=== PATIENT | female | born 1960 | race Two or more races ===

== ENCOUNTER 2016-09-30 06:37 | Day surgery (SDC) | payer OTHER ==
[~2016-09-30] VITALS: Ht 152.4 cm; Wt 74.8 kg
[~2016-09-30 06:37] MED LIST: COLACE100 MG PO; FLA500 PO; HYDROCHLOROTH12.5 M2 PO; LAC PO; LEVAQUIN750 MG PO; LISINOPRIL40 MG PO; METFORMIN ER500 M1 PO; MOTRIN800 MG PO; NOR5 PO; NORCO1 TA1 PO; SIMVASTATIN40 M1 PO
[2016-09-30 06:51] VITALS: BP 165/95
[2016-09-30 12:05] VITALS: BP 151/96
== END 2016-09-30 11:30 | disposition home or self-care (01) ==
LOC: DS 06:37 → OR 07:30 → DS 11:30
PROVIDERS: Internal Medicine Gastroenterology
PROC: 0FPB8DZ Removal of Intraluminal Device from Hepatobiliary Duct, Via Natural or Artificial Opening Endoscopic (ICD-10-PCS; principal; 2016-09-30 07:30)
PROC: 0FC98ZZ Extirpation of Matter from Common Bile Duct, Via Natural or Artificial Opening Endoscopic (ICD-10-PCS; 2016-09-30 07:30)
PROC: 0DB68ZX Excision of Stomach, Via Natural or Artificial Opening Endoscopic, Diagnostic (ICD-10-PCS; 2016-09-30 07:30)
DX: Z45.89 Encounter for adjustment and management of other implanted devices (principal); K80.20 Calculus of gallbladder without cholecystitis without obstruction; K25.9 Gastric ulcer, unspecified as acute or chronic, without hemorrhage or perforation; B96.81 Helicobacter pylori [H. pylori] as the cause of diseases classified elsewhere; I10 Essential (primary) hypertension; E11.9 Type 2 diabetes mellitus without complications
CPT/HCPCS: 43260; 82962; C1769; J2704; Q0092; Q9967

== ENCOUNTER 2019-04-04 13:56 | Inpatient (IN) | payer OTHER ==
[~2019-04-04] VITALS: Ht 152.4 cm; Wt 78.5 kg
[2019-04-04 14:05] VITALS: Ht 152.4 cm; Wt 78.5 kg
--- NOTE | 2019-04-04 15:12 | NUR ---
PT PRESENTS TO THE ED TODAY WITH C/C OF LEFT FOOT DISCOMFORT. PT HAD A L KNEE REPLACEMENT BACK IN AUGUST AND THE SURGEON "MESSED UP" AND "CUT" AN ARTERY AND A NERVE. PT PRESENTS TODAY WITH 1ST-4TH TOES WITH BLACK DISCOLORATION. HALF OF THE 1ST TOE APPEARS BLACK. 5TH TOE DOES NOT SEEM TO BE DISCOLORED, FLOAT OPERATOR IMMEDIATE TO THE 5TH TOE. PT REPORTS THAT SHE NO LONGER HAS FEELING TO THE AREAS OF BLACK DISCOLORATION. PT ALSO HAS EDEMA TO LEFT LOWER EXTREMITY FROM HER LEFT KNEE AND DOWN. PT REPORTS THAT SHE HAS TRIED FOLLOWING UP WITH A VASCULAR SPECIALIST AND WAS TOLD TO COME TO THE ED. +MALODOROUS YELLOW/BROWN DRAINAGE BETWEEN 4TH AND 5TH TOE. PT IS AWAKE AND ALERT, RESP E/U, NAD NOTED. AWAITING MSE.
[2019-04-04 16:51] LABS: BASOPHIL % 0.8 % (0-2); PLATELET COUNT 285 x10^3mcL (130-400)
[2019-04-04 16:54] LABS: RED CELL DISTRIBUTION WIDTH 15.2 % (11.5-14.5)
[2019-04-04 17:00] LABS: CALCIUM 9.3 mg/dL (8.5-10.1); CARBON DIOXIDE 30.7 mmol/L (21-32); CHLORIDE SERUM 101 mmol/L (98-107); CREATININE SERUM 0.7 mg/dL (0.6-1.0); GFR1 > 60 mL/min; GLUCOSE SERUM 94 mg/dL (74-106); POTASSIUM SERUM 3.1 mmol/L (3.5-5.1); SODIUM SERUM 141 mmol/L (136-145)
[2019-04-04 17:04] LABS: ALBUMIN 4.3 g/dL (3.4-5.0); ALKALINE PHOSPHATASE 110 U/L (46-116); ALT/SGPT 29 U/L (14-59); AST/SGOT 20 U/L (15-37); BILIRUBIN TOTAL 0.8 mg/dL (0.20-1.00); C REACTIVE PROTEIN 0.4 mg/dL (<=0.9)
[2019-04-04 18:02] LABS: ERYTHROCYTE SED RATE 37 mm/hr (0-30)
--- NOTE | 2019-04-04 18:31 | NUR ---
ATTEMPTING TO START IV, FOOT DOCTOR AT BEDSIDE AT THIS TIME.
--- NOTE | 2019-04-04 18:42 | NUR ---
AATTEMPTING TO DO IV AT THIS TIME, RADIOLOGY AT BEDSIDE.
[2019-04-04 18:54] LABS: MAGNESIUM 2.1 mg/dL (1.8-2.4)
[2019-04-04 18:56] LABS: CHOLESTEROL/HDL RATIO 3.6
[2019-04-04 18:57] LABS: T4(THYROXINE) 9.5 ug/dL (4.7-13.3)
--- NOTE | 2019-04-04 19:22 | NUR ---
PT MEDICATED PER ORDER, PT VERBALIZED UNDERSTANDING OF MEDICATION PRIOR TO ADMINISTRATION. PT IS AWAKE AND ALERT, RESP E/U, NAD NOTED. SPOUSE AT BEDSIDE.
[2019-04-04] MEDS ORDERED: LASIX20 MG PO (19:25)
[2019-04-04 19:47] LABS: T3 TOTAL 1.02 ng/mL
--- NOTE | 2019-04-04 19:58 | NUR ---
REPORT CALLED TO LYUDMILA SOARES ON MED SURG TO ASSUME CARE FOR PT.
--- NOTE | 2019-04-04 20:04 | NUR ---
IV VANCO INITIATED PER ORDER, PT VERBALIZED UNDERSTANDING OF MEDICATION PRIOR TO ADMINISTRATION.
--- NOTE | 2019-04-04 20:13 | NUR ---
PT TRANSPORTED TO TELE AT THIS TIME. PT IS AWAKE AND ALERT, RESP E/U, VERBALIZED UNDERSTANDING OF PLAN OF CARE PRIOR TO TRANSPORT. PT SENT WITH LYUDMILA MONTALVO AWARE OF NEED TO CONTINUE INFUSION. TRANSPORTED BY EMT VANI VIA [facility] MALONEY NOTED.
[2019-04-04 20:44] VITALS: BP 114/67
--- NOTE | 2019-04-04 20:55 | NUR ---
RECEIVED PT FROM LYUDMILA MOORE. PT A/OX4. DENIES SOB ON RA. IV PATENT AND INFUSING WELL WITH NO S/S OF INFILTRATION. AT BEDSIDE. PT ORIENTED TO ROOM AND SURROUNDINGS. CALL LIGHT WITHIN REACH, BED IN LOW POSITION. WILL CONTINUE TO MONITOR.
--- NOTE | 2019-04-04 20:55 | NUR ---
RECEIVED FROM ER, TRANSPORTED VIA [facility]. AWAKE AND ALERT, ORIENTED TO NAME, PLACE, TIME AND SITUATION. SPEECH CLEAR AND APPROPRIATE. BREATHING EVEN AND UNLABORED ON ROOM AIR. SALINE LOCK TO LEFT AC, INTACT. STATED SOUGHT ADMISSION DUE TO INCREASING PAIN AND DRAINAGE TO LEFT FOOT/TOES. NOTED 1ST TO 4TH TOES OF LEFT FOOT ARE BLACK IN COLOR. SCANT DRAINAGE NOTED IN BETWEEN 4TH AND 5TH TOES. NOTED CRUSTED AREA IN PLANTAR SIDE OF LEFT FOOT. SEE PHOTODOCUMENTATIONS. INSTRUCTED ON USE OF CALL LIGHT TO CALL FOR ASSISTANCE. PLACED WITHIN EASY REACH. ENDORSED TO NURSE SORAES
--- NOTE | 2019-04-05 01:31 | NUR ---
PT RESTING IN NO ACUTE DISTRESS. RR EVEN AND UNLABORED. CALL LIGHT WITHIN REACH, BED IN LOW POSITION. WILL CONTINUE TO MONITOR.
[2019-04-05 06:25] LABS: BASOPHIL % 1.1 % (0-2); PLATELET COUNT 263 x10^3mcL (130-400)
[2019-04-05 06:29] LABS: RED CELL DISTRIBUTION WIDTH 14.8 % (11.5-14.5)
[2019-04-05 06:39] LABS: CALCIUM 9.2 mg/dL (8.5-10.1); CARBON DIOXIDE 30.4 mmol/L (21-32); CHLORIDE SERUM 106 mmol/L (98-107); CREATININE SERUM 0.7 mg/dL (0.6-1.0); GFR1 > 60 mL/min; GLUCOSE SERUM 101 mg/dL (74-106); SODIUM SERUM 144 mmol/L (136-145)
--- NOTE | 2019-04-05 07:05 | NUR ---
RECEIVED BESIDE REPORT FROM JAVA USER INTERFACE DEVELOPER NURSE AT THIS TIME. PATIENT RESTING COMFORTABLY IN BED. NO APPARENT DISTRESS OR DISCOMFORT NOTED. BREATHING EVEN AND UNLABORED. NO RESPIRATORY DSITRESS NOTED. PATIENT DENIES SHORTNESS OF BREATH. PATIENT DENIES CHEST PAIN AT THIS TIME. 1ST-4TH TOE ON LEFT FOOT BLACK IN COLOR AND SCANT DRAINAGE NOTED BETWEEN 4TH-5TH TOE ON LEFT FOOT. IV PATENT AND INTACT. ALL QUESTIONS AND CONCERNS ADDRESSED. ALL NEEDS ATTENDED TO. WILL CONTINUE TO MONITOR
[2019-04-05 08:21] VITALS: BP 120/76
--- NOTE | 2019-04-05 10:19 | NUR ---
ALL MORNING MEDICATIONS ADMINISTERED. PATIENT TOLERATED MEDICATION WELL. NO APPARENT ADVERSE EFFECTS NOTED. ALL NEEDS ATTENDED TO. WILL CONTINUE TO MONITOR
--- NOTE | 2019-04-05 12:00 | NUR ---
PATIENT BLOOD SUGAR AT THIS TIME IS 94. NO INSULIN COVERAGE REQUIRED. ALL NEEDS ATTENDED TO. WILL CONTINUE TO MONITOR
[2019-04-05 15:51] LABS: microscopic required? NO
[2019-04-05 15:58] LABS: urine erythrocyte NEGATIVE (NEGATIVE)
[2019-04-05 16:07] LABS: AMPHETAMINE QUAL UR NONE DETECTED (See below)
[2019-04-05 16:55] VITALS: BP 108/65
--- NOTE | 2019-04-05 17:09 | NUR ---
BLOOD SUGAR 123 AT THIS TIME. NO INSULIN COVERAGE REQUIRED. ALL NEEDS ATTENDED TO. WILL CONTINUE TO MONITOR
--- NOTE | 2019-04-05 18:45 | NUR ---
PATIENT RESTING COMFORTABLY IN BED AT THIS TIME. FAMILY MEMBERS AT BEDSIDE. NO APPARENT DISTRESS OR DISCOMFORT NOTED. IV PATENT AND INTACT TO LAC. ALL QUESTIONS AND CONCERNS ADDRESSED. ALL NEEDS ATTENDED TO. SAFETY PRECAUTIONS MAINTAINED. WILL ENDORSE ALL CARE TO CRANE RIGGER NURSE
--- NOTE | 2019-04-05 19:44 | NUR ---
SEATED UP IN BED TALKING TO FAMILY MEMBER, NO DISTRESS AUDIBLE INSPIRATORY WHEEZES NOTED, SOB ON EXERTION ON CONTINUOUS 02 @ 2L/MIN NC, ENCOURAGED TO USE INCENTIVE SPIROMETER, SATURATING 93% IV ACCESS @ LT HAND PATENT NON INFIL, SCD'S FOR DVT PROPHYLAXIS, TELE #[address] IN THE MONITOR NO CP OR PRESSURE, SHIFT ASSESSMENT DONE, CONT TO MONITOR.
--- NOTE | 2019-04-05 19:55 | NUR ---
SHIFT ASSESSMENT DONE, PT IN BED AAO X4 VERBAL LUXEMBOURGER SPEAKING DENIES PAIN LT FOOT ELEVATED WITH PILLOW, LT FOOT 1ST TO 4TH TOE BLACK IN COLOR WITH MINIMAL DRAINAGE BUFFING LINE SET UP WORKER, +2 EDEMA LLE, ABLE TO AMBULATE USING FWW, IVF NS INFUSING @ 100CC/HR IV ACCESS LAC PATENT NON INFIL, AFEBRILE, NO DISTRESS LUNGS CTA, FAMILY MEMBER AT BEDSIDE FOR VISIT, CONT TO MONITOR AND PROCEED TO CURRENT PLAN OF CARE.
--- NOTE | 2019-04-05 20:00 | NUR ---
RECEIVED PT IN BED AAO X4 VERBAL PERSIAN SPEAKING, DENIES PAIN NO DISTRESS LUNGS CTA, INTACT DRESSING TO LEFT FOOT, CLEAN AND DRY, DRESSING CHANGED BY IT BUSINESS ANALYST THIS AFTERNOON, KEEP LEFT LEG ELEVATED WITH PILLOW, IVF ON TKO, CONT ON IV ANTIBIOTIC ORDERED, NO ADV REACTION, V/S STABLE, SHIFT ASSESSMENT DONE, CALL LIGHT AT REACH.
[2019-04-05 20:19] VITALS: BP 102/62
--- NOTE | 2019-04-05 21:35 | NUR ---
RECEIVED VANCO TROUGH RESULT 13.5, PHARMACIST AWARE FOR VANCO DOSING, CONTINUE SAME DOSE PER PHARMACIST ON ACCEPTABLE RANGE.
--- NOTE | 2019-04-05 21:38 | NUR ---
PT C/O LT FOOT PAIN 02/16 PER ASSESSMENT NORCO PO GIVEN PER PRN ORDER, REPOSITIONED SELF TO COMFORT, CONT TO MONITOR.
--- NOTE | 2019-04-06 02:00 | NUR ---
ASSISTED TO THE BATHROOM AMBULATES WITH FWW SLOW WT BEARING TO THE HEEL AREA SLOW STEADY BALANCE, DENIES PAIN, CONT TO MONITOR.
[2019-04-06 05:33] VITALS: BP 116/76
[2019-04-06 06:06] LABS: BASOPHIL % 0.4 % (0-2); PLATELET COUNT 256 x10^3mcL (130-400)
--- NOTE | 2019-04-06 06:24 | NUR ---
IV ATB ZOSYN HANGED INDICATED, NO ADV REACTION, PT'S BLD SUGAR IN RANGE, LT FOOT KEPT ELEVATED WITH PILLOW DRY AND INTACT DRESSING, WILL ENDORSE TO INCOMING SHIFT FOR F/U CARE.
--- NOTE | 2019-04-06 07:10 | NUR ---
RECEIVED REPORT FROM BLAKE COREAS, PT IN BED IN NO ACUTE DISTRESS
--- NOTE | 2019-04-06 07:36 | NUR ---
PT IN BED, IN NO APPARENT PAIN/DISTRESS, VERBAL, ABLE TO MAKE NEEDS KNOWN, PERRLA, NO FACIAL DROOP/SLUURED SPEECH, DENIED PAIN/ALEXANDER/CP/PALPITATION, DENIED N/V/D, RESP EVEN, NO SOB/COUGH, MEDSURG, CHEST RISE SYMMETRICALLY, ABD ROUNDED AND NON-TENDER TO TOUCH, BS ACTIVE X 4, PALP PUSLES, WEAK PULSES TO (L) LOWER EXTREMITITES, SKIN D/W/C, SEE SKIN ASSESSMENT, WOUND DRESSING CDI, IV PATENT AND FLUSHING WELL, DRESSING CDI, AMBULATORY W/ ASSIST, CONTINENT, CCHO DIET, ALL NEEDS ADDRESSED AT THIS TIME, SAFETY PROTOCOL FOLLOWED, CONTINUE TO MONITOR
[2019-04-06 08:16] LABS: POTASSIUM SERUM 3.4 mmol/L (3.5-5.1); SODIUM SERUM 141 mmol/L (136-145)
[2019-04-06 08:17] LABS: CHLORIDE SERUM 102 mmol/L (98-107)
[2019-04-06 08:18] LABS: CARBON DIOXIDE 30.5 mmol/L (21-32); CREATININE SERUM 0.8 mg/dL (0.6-1.0); GFR1 > 60 mL/min; GLUCOSE SERUM 100 mg/dL (74-106); MAGNESIUM 2.2 mg/dL (1.8-2.4)
[2019-04-06 08:23] VITALS: BP 103/61
--- NOTE | 2019-04-06 08:27 | NUR ---
SEEN BY COMMODITIES TRADER, DRESSING CHANGED BY COMMODITIES TRADER, REPORTED PAIN 01/16, [place], (L) TOES WOUND, MEDICATED PER EMAR PRN ORDER, TAKEN WELL, EDUCATION R/T MEDICATION, ASE GIVEN TO PT, VERBALLY UNDERSTANDING, CONTINUE TO MONITOR
[2019-04-06 08:30] VITALS: BP 103/61
--- NOTE | 2019-04-06 09:36 | NUR ---
AM MED GIVEN PER EMAR PER MD ORDER, TAKEN WELL, NO ASE NOTED AT THIS TIME, EDUCATED PT R/T MED AND S/E, VERBALLY UNDERSTANDING, CONTINUE TO MONITOR
[2019-04-06] MEDS ORDERED: COUMADIN3 MG PO (10:40)
--- NOTE | 2019-04-06 11:49 | NUR ---
PT SITTING IN BED, IN NO ACUTE DISTRESS, DENIED PAIN/DISCOMFORT AT THIS TIME, FAMILY AT BEDSIDE, CONTINUE TO MONITOR
--- NOTE | 2019-04-06 13:52 | NUR ---
DC PAPER SIGNED AND KEPT IN CHART, EDUCATION R/T MED, CONDITION AND WOUND CARE GIVEN TO PT AND AT BEDSIDE, VERBALLY UNDERSTANDING, WOUND SUPPLY GIVEN TO PT APPROXIMATELY 7 DAYS, NEW PRESCRIPTION GIVEN TO PT PER MD ORDER, WOUND DRESSING PIC TAKEN AND KEPT IN CHART, DRESSING CDI, IV REMOVED, IV CATH TIP INTACT, NO ACTIVE BLEEDING NOTED AT THIS TIME, EDUCATION R/T WOUND INFECTION RECOGNITION GIVEN TO PT AND , MICHAEL UNDERSTANDING, PT MADE AWARE OF ARRANGED APOPINTMENT W/ PCP AND CATALOG LIBRARIAN ADRIEN, PT AWARE THAT SHE NEED TO CALLED FOR TIME CONFIRMATION W/ DR JURADO OFFICE ON 04/12/19, PHONE NUMBER GIVEN TO , PT SAID IT'S HER RESPONSIBITY TO F/U W/ APPOINTMENT, PAIN MEDICATED PRIOR DC PER PT REQUESTED, TOLERATED WELL, NO ASE NOTED AT THIS TIME, PT ASSISTED TO LOBBY BY NURSING STAFFS USING CLARIB[address] DOMINGUEZ DRIVE PT HOME. PT LEAVE IN NO ACUTE DISTRESS
--- NOTE | 2019-04-07 12:26 | NUR ---
Wound care consult not done, pt. discharged.
== END 2019-04-06 14:15 | disposition home or self-care (01) | DRG 920 ==
LOC: ED 13:56 → MU 18:22
PROVIDERS: Emergency Medicine; ADMIT General Practice
DX: M96.89 Other intraoperative and postprocedural complications and disorders of the musculoskeletal system (principal); I96 Gangrene, not elsewhere classified; M87.375 Other secondary osteonecrosis, left foot; L97.429 Non-pressure chronic ulcer of left heel and midfoot with unspecified severity; I97.89 Other postprocedural complications and disorders of the circulatory system, not elsewhere classified; M21.372 Foot drop, left foot; E87.6 Hypokalemia; E78.5 Hyperlipidemia, unspecified; G62.89 Other specified polyneuropathies; E66.9 Obesity, unspecified; Z96.652 Presence of left artificial knee joint; Z68.31 Body mass index [BMI] 31.0-31.9, adult; Y83.4 Other reconstructive surgery as the cause of abnormal reaction of the patient, or of later complication, without mention of misadventure at the time of the procedure; Y79.2 Prosthetic and other implants, materials and accessory orthopedic devices associated with adverse incidents; Y92.234 Operating room of hospital as the place of occurrence of the external cause
CPT/HCPCS: 82962; 83880; 84439; G0378; J2543; J3370; J7030; J7050; Q0092